=== PATIENT | male | born 1995 | race Caucasian/White ===

== ENCOUNTER 2017-08-18 12:47 | Emergency (ER) | payer SELFPAY ==
[~2017-08-18] VITALS: Ht 172.7 cm; Wt 61.7 kg
[2017-08-18] MEDS ORDERED: PREDNISONE20 M1 PO ×2 (13:19→13:40)
== END 2017-08-18 13:54 | disposition home or self-care (01) ==
LOC: ED 12:47
DX: L23.7 Allergic contact dermatitis due to plants, except food (principal)